=== PATIENT | male | born 1930 | race Caucasian/White ===

== ENCOUNTER 2016-12-22 21:29 | Inpatient (IN) ==
[2016-12-22 23:49] VITALS: BMI 24.7
[2016-12-22] MEDS ORDERED: HALOPERIDOL 5 MG/ML INJECTION IM PRN (23:49)
[2016-12-22] MEDS ORDERED: HALOPERIDOL 0.5 MG TABLET PO PRN (23:49)
[2016-12-22] MEDS ORDERED: LORazepam 0.5 MG TABLET PO PRN (23:49)
[2016-12-23] MEDS: ACETAMINOPHEN 325 MG TABLET PO PRN ×2 (01:06→13:21)
[2016-12-23] MEDS ORDERED: PNEUMOCOCCAL 13 VACCINE 0.5ml INJECTION IM ONE (08:00)
[2016-12-23] MEDS: DOCUSATE SODIUM 100 MG CAPSULE PO SCH ×2 (11:04→20:10)
[2016-12-23] MEDS: CARVEDILOL 3.125 MG TABLET PO SCH ×2 (11:04→20:09)
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
[2016-12-23] MEDS: LOVASTATIN 20 MG TABLET PO SCH (20:10)
[2016-12-24] MEDS: DOCUSATE SODIUM 100 MG CAPSULE PO SCH ×2 (10:00→20:16)
[2016-12-24] MEDS: CARVEDILOL 3.125 MG TABLET PO SCH ×2 (10:00→20:16)
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
[2016-12-24] MEDS: ACETAMINOPHEN 325 MG TABLET PO PRN ×2 (13:04→23:47)
[2016-12-24] MEDS: LOVASTATIN 20 MG TABLET PO SCH (20:16)
[2016-12-25] MEDS: DOCUSATE SODIUM 100 MG CAPSULE PO SCH ×2 (08:39→20:03)
[2016-12-25] MEDS: CARVEDILOL 3.125 MG TABLET PO SCH ×2 (08:39→20:03)
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
[2016-12-25] MEDS: LOVASTATIN 20 MG TABLET PO SCH (20:03)
[2016-12-25] MEDS: RisperiDONE 0.5 MG TABLET PO SCH (20:03)
[2016-12-26] MEDS: CARVEDILOL 3.125 MG TABLET PO SCH ×2 (09:37→17:15)
[2016-12-26] MEDS: DOCUSATE SODIUM 100 MG CAPSULE PO SCH ×2 (09:37→20:00)
--- NOTE | 2016-12-26 15:40 | Procedure Note ---
Procedure Note: Nursing staff called to report patient felt Dizzy. BGM was 290's. vital signs were taken and pulse ox reveled elevated pulse in the 150's briefly that decreased to 80's. EKG obtained reveled NSR. Patient remains symptomatic. Family was notified and reveal this is common. Patient has had similar symptoms in the past. Currently stable without complaints.
[2016-12-26] MEDS ORDERED: IBUPROFEN 400 MG TABLET PO PRN (16:16)
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
[2016-12-26] MEDS: RisperiDONE 0.5 MG TABLET PO SCH (20:00)
[2016-12-26] MEDS: LOVASTATIN 20 MG TABLET PO SCH (20:00)
--- NOTE | 2016-12-27 08:42 | Progress Note ---
- Date 12/27/16 Subjective: Carroll was still in bed but awake and alert. He denies any c/o such as chest pain , SOA, or weakness. He has been eating/drinking well and denies any abd or GI concerns. His dizzy episode yesterday occurred after he "walked in a [place]" from his bed, to the bathroom, to the sink, and back to the bed. His only other symptom was that his head felt hot. Objective Vital signs: Temperature 98.2 F 12/26/16 20:00 Pulse Rate 67 12/26/16 20:00 Respiratory Rate 18 12/26/16 20:00 Blood Pressure 122/67 12/26/16 20:00 Pulse Oximetry 96 12/26/16 20:00 Height/Weight/BMI: Height 1.7 m Weight 71.5 kg Body Mass Index 24.7 - Constitutional Present: no acute distress, well nourished, well developed - Routine HEENT Exam ENT: Present: oropharynx clear - Routine Respiratory Exam Present: CTA bilaterally - Routine Cardiovascular Exam Present: RRR, S1, S2 - Routine Abdominal Exam Present: soft, normoactive bowel sounds, non distended, non tender Comments: insulin pump to right side of abd. - Routine Extremities Exam Present: edema (trace edema b/l lower ext.) - Routine Musculoskeletal Exam Musculoskeletal: Present: limited range of motion (shoulder immobilizer in place to right arm) - Routine Skin Exam Present: intact, dry, warm - Routine Neurological Exam Present: alert, oriented X3 - Routine Psychiatric Exam Present: normal affect, normal thought process, cooperative Results - Labs CBC & Chem 7: 12/27/16 07:52 12/27/16 07:52 Assessment and Plan (1) Delusional disorder Current visit: Yes Status: Acute (2) Type 1 diabetes Current visit: Yes Status: Acute Resuscitation Status: Full Code Assessment and Plan: IMPRESSION Delusional disorder Diabetes mellitus type 1-insulin pump and continuous glucometer Mild normocytic anemia Thrombocytopenia Left ear deafness Hypertension GERD Hyperlipidemia Diverticulosis s/p right shoulder arthroscopy with [employer] Labs checked d/t dizzy episode yesterday - mild anemia and thrombocytopenia. Stop ibuprofen. Labs from [place] on 12/21 showed a platelet count of 107 & hgb of 13.8. Per [facility], they do not have a previous CBC on him to confirm/deny chronicity of thrombocytopenia. Pt doesn't take Tylenol (afraid it creates problems with his blood sugars). Add tramadol for postop pain control. DM management per pt. Psych notes reviewed - since Risperdal was started his delusions and paranoia have become less prominent Hospital Course Summary Disclaimer: The visit summary below is not to be considered part of the above Progress Note. Hospital Course: Assessment Delusional disorder Diabetes mellitus type 1-insulin pump and continuous glucometer Left ear deafness Hypertension GERD Hyperlipidemia Diverticulosis 12/23/16-hospitalist consult Agree with admissions to [facility] and to provide a safe environment. Patient has to change out insulin cartridge every 3 days. This is due on Monday, December 24. He also changes out his continuous glucose monitoring system every 3 days as well. This will be due at the same time. Will continue his current basal insulin as programmed into his pump. He is very capable, at this time, to dial in his own bolus insulin based on his blood sugar. Nurses to record his blood sugars at least fasting and before meals, and ideally each time insulin is given. Will continue lovastatin and carvedilol for hyperlipidemia and hypertension. These are his only prescription medications besides his insulin. ER notes are reviewed. Case discussed with nursing staff and [facility] physical security manager. Ideally patient should establish with a primary care provider, and continue to follow-up routinely with Alisha Lares APRN endocrinology. 12/24/16 10:46 Remains delusional. Will contact [employer] for collateral and request start of antipsychotic 12/25/16 11:36 Remains paranoid and delusional. Will start Risperdal 0.5mg at HS with [facility] consent 12/26/16 18:48 Remains paranoid but appears less focused on it. Continue Risperdal. 12/27/16 Labs checked d/t dizzy episode yesterday - mild anemia and thrombocytopenia. Stop ibuprofen. Labs from [place] on 12/21 showed a platelet count of 107 & hgb of 13.8. Per [facility], they do not have a previous CBC on him to confirm/deny chronicity of thrombocytopenia. Pt doesn't take Tylenol (afraid it creates problems with his blood sugars). Add tramadol for postop pain control. DM management per pt. Psych notes reviewed - since Risperdal was started his delusions and paranoia have become less prominent
[2016-12-27] MEDS ORDERED: ACETAMINOPHEN 325 MG TABLET PO PRN (09:15)
[2016-12-27] MEDS: DOCUSATE SODIUM 100 MG CAPSULE PO SCH ×2 (09:50→21:03)
[2016-12-27] MEDS: CARVEDILOL 3.125 MG TABLET PO SCH ×2 (09:50→17:54)
[2016-12-27] MEDS: TRAMADOL 50 MG TABLET PO PRN ×2 (09:51→21:03)
--- NOTE | 2016-12-27 18:41 | Neuropsych Progress Note ---
[facility] Subjective Date: 12/27/16 - Sujective/Severity of Illness Medications: Acetaminophen (Tylenol) 325 - 650 mg PO Q5H PRN PRN Reason: Discomfort Carvedilol (Coreg) 3.125 mg PO BIDWM [facility] Last Admin: 12/27/16 17:54 Dose: 3.125 mg Docusate Sodium (Colace) 100 mg PO BID [facility] Last Admin: 12/27/16 09:50 Dose: 100 mg Haloperidol (Haldol) 0.5 mg PO Q6H PRN PRN Reason: Extreme agitation Haloperidol Lactate (Haldol) 0.5 mg IM Q6H PRN PRN Reason: Extreme agitation Lorazepam (Ativan Inj) 0.5 mg IM Q6H PRN PRN Reason: Extreme agitation Lorazepam (Ativan) 0.5 mg PO Q6H PRN PRN Reason: Extreme agitation Lovastatin (Mevacor) 20 mg PO HS [facility] Last Admin: 12/26/16 20:00 Dose: 20 mg Risperidone (Risperdal) 0.5 mg PO [facility] Last Admin: 12/26/16 20:00 Dose: 0.5 mg Tramadol HCl (Ultram) 50 mg PO Q6H PRN PRN Reason: Pain Last Admin: 12/27/16 09:51 Dose: 50 mg Subjective: Pt seen and chart examined. Nursing reports pt has been irritable at times but is redirectable. On face to face the pt is pleasant. He remains paranoid and delusional. Denies any S/I. Tolerating meds Start Time: 17:00 Stop Time: 17:15 Mental Status Exam Vitals: Last Vital Signs Temp 97.8 F 12/27/16 15:56 Pulse 80 12/27/16 15:56 Resp 20 12/27/16 15:56 BP 144/75 H 12/27/16 15:56 Pulse Ox 98 12/27/16 15:56 Height: 1.7 m Weight: 71.5 kg - Mental Status Exam Muscle Strength/Tone: Normal Dressing: Casual Grooming: Good Attitude: Cooperative Motor Activity: Normal Eye Contact: Fair Speech: Rapid Volume: Normal Rhythm: Appropriate Rhythm Orientation: Oriented X4 Mood: Euthymic Rate of Thoughts: Pressured Thought Organization: Tangential Associations: Flight of Ideas Abstract Reasoning: Poor abstract reasoning Computation: Intact Thought Content: Delusions Perception/Psychotic: Perception Normal Language: Naming Intact Fund of Knowledge: Appropriate Memory: Grossly Intact Suicidal Ideation: None Homicidal Ideation: Intermittent Insight: Poor Judgement: Poor Impulse Control: Poor - Laboratory Result Diagrams: 12/27/16 07:52 12/27/16 07:52 Laboratory Results - last 24 hr 12/27/16 12/27/16 07:52 07:52 WBC 5.7 RBC 4.33 L Hgb 13.3 L Hct 38.6 L MCV 89.1 MCH 30.7 MCHC 34.5 RDW Std Deviation 43.0 Plt Count 99 L MPV 9.8 Immature Gran % (Auto) 0.2 Neut % (Auto) 42.1 Lymph % (Auto) 48.9 H Bowie % (Auto) 4.8 Eos % (Auto) 3.5 Baso % (Auto) 0.5 Neut # (Auto) 2.4 Lymph # (Auto) 2.8 Bowie # (Auto) 0.3 Eos # (Auto) 0.2 Baso # (Auto) 0.0 Abs Immat Gran (auto) 0.01 Turbidity < 20 Sodium 142 Potassium 4.2 Chloride 103 Carbon Dioxide 31 H Anion Gap 8 BUN 15.0 Creatinine 0.9 GFR Calculation 80 BUN/Creatinine Ratio 17 Glucose 174 H Calculated Osmolality 278 Calcium 9.1 Total Bilirubin 0.80 Icterus Index < 2 AST 16 L ALT 37 Alkaline Phosphatase 115 Total Protein 6.4 Albumin 3.5 Globulin 2.9 Albumin/Globulin Ratio 1.2 Specimen Hemolysis < 15 Assessment and Plan (1) Major neurocognitive disorder Problem details: Suspect. Possibly Frontotemporal Current visit: Yes Status : Acute Hospital Course Summary Disclaimer: The visit summary below is not to be considered part of the above Progress Note. Hospital Course: Assessment Delusional disorder Diabetes mellitus type 1-insulin pump and continuous glucometer Left ear deafness Hypertension GERD Hyperlipidemia Diverticulosis 12/23/16-hospitalist consult Agree with admissions to [facility] and to provide a safe environment. Patient has to change out insulin cartridge every 3 days. This is due on Monday, December 24. He also changes out his continuous glucose monitoring system every 3 days as well. This will be due at the same time. Will continue his current basal insulin as programmed into his pump. He is very capable, at this time, to dial in his own bolus insulin based on his blood sugar. Nurses to record his blood sugars at least fasting and before meals, and ideally each time insulin is given. Will continue lovastatin and carvedilol for hyperlipidemia and hypertension. These are his only prescription medications besides his insulin. ER notes are reviewed. Case discussed with nursing staff and [facility] transportation dispatch manager. Ideally patient should establish with a primary care provider, and continue to follow-up routinely with Alisha Lares APRN endocrinology. 12/24/16 10:46 Remains delusional. Will contact [employer] for collateral and request start of antipsychotic 12/25/16 11:36 Remains paranoid and delusional. Will start Risperdal 0.5mg at HS with [facility]PO[facility] consent 12/26/16 18:48 Remains paranoid but appears less focused on it. Continue Risperdal. 12/27/16 Labs checked d/t dizzy episode yesterday - mild anemia and thrombocytopenia. Stop ibuprofen. Labs from [place] on 12/21 showed a platelet count of 107 & hgb of 13.8. Per [facility], they do not have a previous CBC on him to confirm/deny chronicity of thrombocytopenia. Pt doesn't take Tylenol (afraid it creates problems with his blood sugars). Add tramadol for postop pain control. DM management per pt. Psych notes reviewed - since Risperdal was started his delusions and paranoia have become less prominent 12/27/16 18:41 Remains paranoid. Continue current care
[2016-12-27] MEDS: RisperiDONE 0.5 MG TABLET PO SCH (21:03)
[2016-12-27] MEDS: LOVASTATIN 20 MG TABLET PO SCH (21:03)
[2016-12-28] MEDS: ONDANSETRON ODT 4 MG TABLET PO PRN ×2 (00:09→10:12)
[2016-12-28] MEDS: CARVEDILOL 3.125 MG TABLET PO SCH ×2 (10:48→18:10)
[2016-12-28] MEDS: DOCUSATE SODIUM 100 MG CAPSULE PO SCH ×2 (10:48→21:09)
[2016-12-28] MEDS ORDERED: INSULIN ASPART 100unit/ml INJECTION SQ ONE (13:14)
--- NOTE | 2016-12-28 17:54 | Neuropsych Progress Note ---
[facility] Subjective Date: 12/28/16 - Sujective/Severity of Illness Medications: Acetaminophen (Tylenol) 325 - 650 mg PO Q5H PRN PRN Reason: Discomfort Carvedilol (Coreg) 3.125 mg PO BIDWM [facility] Last Admin: 12/28/16 10:48 Dose: Not Given Docusate Sodium (Colace) 100 mg PO BID [facility] Last Admin: 12/28/16 10:48 Dose: Not Given Haloperidol (Haldol) 0.5 mg PO Q6H PRN PRN Reason: Extreme agitation Haloperidol Lactate (Haldol) 0.5 mg IM Q6H PRN PRN Reason: Extreme agitation Lorazepam (Ativan Inj) 0.5 mg IM Q6H PRN PRN Reason: Extreme agitation Lorazepam (Ativan) 0.5 mg PO Q6H PRN PRN Reason: Extreme agitation Lovastatin (Mevacor) 20 mg PO HS [facility] Last Admin: 12/27/16 21:03 Dose: 20 mg Ondansetron HCl (Zofran Po) 4 mg PO Q6H PRN PRN Reason: Nausea &/or vomiting Last Admin: 12/28/16 10:12 Dose: 4 mg Risperidone (Risperdal) 0.5 mg PO [facility] Last Admin: 12/27/16 21:03 Dose: 0.5 mg Tramadol HCl (Ultram) 50 mg PO Q6H PRN PRN Reason: Pain Last Admin: 12/27/16 21:03 Dose: 50 mg Subjective: Pt seen and chart examined. Nursing reports pt remains paranoid and delusional. has had some issues with his insuling pump and his blood sugars have been high. On face to face the pt states he is doing well. He is pleasant but continues to ruminate on med pulling his arm and him wanting to talk to the [employer]. He denies S/I or H/I. Tolerating meds Start Time: 14:30 Stop Time: 14:45 Mental Status Exam Vitals: Last Vital Signs Temp 98.1 F 12/28/16 16:00 Pulse 78 12/28/16 16:00 Resp 16 12/28/16 16:00 BP 132/67 12/28/16 16:00 Pulse Ox 97 12/28/16 16:00 Height: 1.7 m Weight: 71.5 kg - Mental Status Exam Muscle Strength/Tone: Normal Dressing: Casual Grooming: Good Attitude: Cooperative Motor Activity: Normal Eye Contact: Fair Speech: Rapid Volume: Normal Rhythm: Appropriate Rhythm Orientation: Oriented X4 Mood: Euthymic Rate of Thoughts: Pressured Thought Organization: Tangential Associations: Flight of Ideas Abstract Reasoning: Poor abstract reasoning Computation: Intact Thought Content: Delusions Perception/Psychotic: Perception Normal Language: Naming Intact Fund of Knowledge: Appropriate Memory: Grossly Intact Suicidal Ideation: None Homicidal Ideation: Intermittent Insight: Poor Judgement: Poor Impulse Control: Poor - Laboratory Result Diagrams: 12/27/16 07:52 12/27/16 07:52 Laboratory Results - last 24 hr 12/27/16 12/27/16 12/27/16 20:05 21:14 23:00 Glucometer 91 156 212 12/27/16 12/28/16 12/28/16 23:41 01:34 03:06 Glucometer 226 196 233 12/28/16 12/28/16 12/28/16 03:57 06:05 09:40 Glucometer 231 250 253 12/28/16 12/28/16 12/28/16 10:37 12:33 14:24 Glucometer 293 391 341 12/28/16 15:36 Glucometer 323 Assessment and Plan (1) Major neurocognitive disorder Problem details: Suspect. Possibly Frontotemporal Current visit: Yes Status : Acute Hospital Course Summary Disclaimer: The visit summary below is not to be considered part of the above Progress Note. Hospital Course: Assessment Delusional disorder Diabetes mellitus type 1-insulin pump and continuous glucometer Left ear deafness Hypertension GERD Hyperlipidemia Diverticulosis 12/23/16-hospitalist consult Agree with admissions to [facility] and to provide a safe environment. Patient has to change out insulin cartridge every 3 days. This is due on Monday, December 24. He also changes out his continuous glucose monitoring system every 3 days as well. This will be due at the same time. Will continue his current basal insulin as programmed into his pump. He is very capable, at this time, to dial in his own bolus insulin based on his blood sugar. Nurses to record his blood sugars at least fasting and before meals, and ideally each time insulin is given. Will continue lovastatin and carvedilol for hyperlipidemia and hypertension. These are his only prescription medications besides his insulin. ER notes are reviewed. Case discussed with nursing staff and [facility] merchandise planning manager. Ideally patient should establish with a primary care provider, and continue to follow-up routinely with Alisha Lares APRN endocrinology. 12/24/16 10:46 Remains delusional. Will contact [employer] for collateral and request start of antipsychotic 12/25/16 11:36 Remains paranoid and delusional. Will start Risperdal 0.5mg at HS with [facility]PO[facility] consent 12/26/16 18:48 Remains paranoid but appears less focused on it. Continue Risperdal. 12/27/16 Labs checked d/t dizzy episode yesterday - mild anemia and thrombocytopenia. Stop ibuprofen. Labs from [facility] on 12/21 showed a platelet count of 107 & hgb of 13.8. Per [facility]ology Clinic, they do not have a previous CBC on him to confirm/deny chronicity of thrombocytopenia. Pt doesn't take Tylenol (afraid it creates problems with his blood sugars). Add tramadol for postop pain control. DM management per pt. Psych notes reviewed - since Risperdal was started his delusions and paranoia have become less prominent 12/27/16 18:41 Remains paranoid. Continue current care 12/28/16 17:54 Remains paranoid and delusional. Continue current care
[2016-12-28] MEDS: LOVASTATIN 20 MG TABLET PO SCH (21:08)
[2016-12-28] MEDS: RisperiDONE 0.5 MG TABLET PO SCH (21:08)
[2016-12-29] MEDS: DOCUSATE SODIUM 100 MG CAPSULE PO SCH ×2 (10:53→21:06)
[2016-12-29] MEDS: CARVEDILOL 3.125 MG TABLET PO SCH ×2 (10:53→17:20)
[2016-12-29] MEDS ORDERED: PNEUMOCOCCAL VAC ADMIN CHARGE INJ ONE (12:00)
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
[2016-12-29] MEDS: LOVASTATIN 20 MG TABLET PO SCH (21:06)
[2016-12-29] MEDS: RisperiDONE 0.5 MG TABLET PO SCH (21:06)
[2016-12-30] MEDS: CARVEDILOL 3.125 MG TABLET PO SCH ×2 (11:58→20:12)
[2016-12-30] MEDS: DOCUSATE SODIUM 100 MG CAPSULE PO SCH ×2 (11:58→20:12)
--- NOTE | 2016-12-30 16:43 | Progress Note ---
- Date 12/30/16 Subjective: Carroll is doing well. His shoulder pain has markedly improved and the tramadol has been helpful. He has not had any further dizzy spells. He denies SOA or chest pain. His sugars have been high, but he told me that his doctor gave him permission to run high (used to have hypoglycemic events) for quality of life reasons. Objective Vital signs: Temperature 97.9 F 12/30/16 11:50 Pulse Rate 94 12/30/16 11:50 Respiratory Rate 16 12/30/16 11:50 Blood Pressure 134/71 12/30/16 11:50 Pulse Oximetry 95 12/30/16 11:50 Height/Weight/BMI: Height 1.7 m Weight 70.6 kg Body Mass Index 24.7 - Constitutional Present: no acute distress, well nourished, well developed - Routine HEENT Exam ENT: Present: oropharynx clear - Routine Respiratory Exam Present: CTA bilaterally - Routine Cardiovascular Exam Present: RRR - Routine Abdominal Exam Present: soft, non tender - Routine Extremities Exam Present: no edema - Routine Musculoskeletal Exam Musculoskeletal: Present: surgical scar (right shoulder arthroscopic incisions have healed) - Routine Skin Exam Present: dry, warm - Routine Neurological Exam Present: alert, oriented X3 - Routine Psychiatric Exam Present: normal affect, normal thought process, cooperative Results - Labs CBC & Chem 7: 12/27/16 07:52 12/27/16 07:52 Assessment and Plan (1) Delusional disorder Current visit: Yes Status: Acute (2) Type 1 diabetes Current visit: Yes Status: Acute Assessment and Plan: IMPRESSION Delusional disorder Diabetes mellitus type 1-insulin pump and continuous glucometer Mild normocytic anemia Thrombocytopenia Left ear deafness Hypertension GERD Hyperlipidemia Diverticulosis s/p right shoulder arthroscopy with [facility] [employer] Tramadol is effective in controlling his pain but he hasn't needed any since . Allow permissive hyperglycemia given age and quality of life reasons. Medically stable. Psych notes reviewed. Hospital Course Summary Disclaimer: The visit summary below is not to be considered part of the above Progress Note. Hospital Course: Assessment Delusional disorder Diabetes mellitus type 1-insulin pump and continuous glucometer Left ear deafness Hypertension GERD Hyperlipidemia Diverticulosis 12/23/16-hospitalist consult Agree with admissions to [facility] for [facility] treatment and to provide a safe environment. Patient has to change out insulin cartridge every 3 days. This is due on Monday, December 24. He also changes out his continuous glucose monitoring system every 3 days as well. This will be due at the same time. Will continue his current basal insulin as programmed into his pump. He is very capable, at this time, to dial in his own bolus insulin based on his blood sugar. Nurses to record his blood sugars at least fasting and before meals, and ideally each time insulin is given. Will continue lovastatin and carvedilol for hyperlipidemia and hypertension. These are his only prescription medications besides his insulin. ER notes are reviewed. Case discussed with nursing staff and [facility] manager of allied health services. Ideally patient should establish with a primary care provider, and continue to follow-up routinely with Alisha Lares APRN endocrinology. 12/24/16 10:46 Remains delusional. Will contact [facility] for collateral and request start of antipsychotic 12/25/16 11:36 Remains paranoid and delusional. Will start Risperdal 0.5mg at HS with [facility]PO[facility] consent 12/26/16 18:48 Remains paranoid but appears less focused on it. Continue Risperdal. 12/27/16 Labs checked d/t dizzy episode yesterday - mild anemia and thrombocytopenia. Stop ibuprofen. Labs from [place] on 12/21 showed a platelet count of 107 & hgb of 13.8. Per [facility], they do not have a previous CBC on him to confirm/deny chronicity of thrombocytopenia. Pt doesn't take Tylenol (afraid it creates problems with his blood sugars). Add tramadol for postop pain control. DM management per pt. Psych notes reviewed - since Risperdal was started his delusions and paranoia have become less prominent 12/27/16 18:41 Remains paranoid. Continue current care 12/28/16 17:54 Remains paranoid and delusional. Continue current care 12/29/16 19:13 Remains delusional but denies any thoughts of harming himself or others. Continue current care
--- NOTE | 2016-12-30 18:43 | Neuropsych Progress Note ---
[facility] Subjective Date: 12/30/16 - Sujective/Severity of Illness Medications: Acetaminophen (Tylenol) 325 - 650 mg PO Q5H PRN PRN Reason: Discomfort Carvedilol (Coreg) 3.125 mg PO BIDWM [facility] Last Admin: 12/30/16 11:58 Dose: 3.125 mg Docusate Sodium (Colace) 100 mg PO BID [facility] Last Admin: 12/30/16 11:58 Dose: 100 mg Haloperidol (Haldol) 0.5 mg PO Q6H PRN PRN Reason: Extreme agitation Haloperidol Lactate (Haldol) 0.5 mg IM Q6H PRN PRN Reason: Extreme agitation Lorazepam (Ativan Inj) 0.5 mg IM Q6H PRN PRN Reason: Extreme agitation Lorazepam (Ativan) 0.5 mg PO Q6H PRN PRN Reason: Extreme agitation Lovastatin (Mevacor) 20 mg PO HS [facility] Last Admin: 12/29/16 21:06 Dose: 20 mg Ondansetron HCl (Zofran Po) 4 mg PO Q6H PRN PRN Reason: Nausea &/or vomiting Last Admin: 12/28/16 10:12 Dose: 4 mg Risperidone (Risperdal) 0.5 mg PO [facility] Last Admin: 12/29/16 21:06 Dose: 0.5 mg Tramadol HCl (Ultram) 50 mg PO Q6H PRN PRN Reason: Pain Last Admin: 12/27/16 21:03 Dose: 50 mg Subjective: Pt seen and chart examined. Nursing reports pt is doing well. Remains delusional but is pleasant and seems less focused on the delusions. On face to face the pt states he is doing well. He is pleasant and cooperative. Denies any S/I or H/I. Again states he believes these men were pulling his arm but has no intent to harm them. Tolerating meds Start Time: 16:00 Stop Time: 16:15 Mental Status Exam Vitals: Last Vital Signs Temp 97.6 F 12/30/16 16:00 Pulse 60 12/30/16 16:00 Resp 16 12/30/16 16:00 BP 150/69 H 12/30/16 16:00 Pulse Ox 96 12/30/16 16:00 Height: 1.7 m Weight: 70.6 kg - Mental Status Exam Muscle Strength/Tone: Normal Dressing: Casual Grooming: Good Attitude: Cooperative Motor Activity: Normal Eye Contact: Fair Speech: Rapid Volume: Normal Rhythm: Appropriate Rhythm Orientation: Oriented X4 Mood: Euthymic Rate of Thoughts: Pressured Thought Organization: Tangential Associations: Flight of Ideas Abstract Reasoning: Poor abstract reasoning Computation: Intact Thought Content: Delusions Perception/Psychotic: Perception Normal Language: Naming Intact Fund of Knowledge: Appropriate Memory: Grossly Intact Suicidal Ideation: None Homicidal Ideation: Intermittent Insight: Poor Judgement: Poor Impulse Control: Poor - Laboratory Result Diagrams: 12/27/16 07:52 12/27/16 07:52 Laboratory Results - last 24 hr 12/29/16 12/29/16 12/30/16 16:47 21:06 06:29 Glucometer 211 205 180 12/30/16 12/30/16 11:43 16:16 Glucometer 216 263 Assessment and Plan (1) Major neurocognitive disorder Problem details: Suspect. Possibly Frontotemporal Current visit: Yes Status : Acute Hospital Course Summary Disclaimer: The visit summary below is not to be considered part of the above Progress Note. Hospital Course: Assessment Delusional disorder Diabetes mellitus type 1-insulin pump and continuous glucometer Left ear deafness Hypertension GERD Hyperlipidemia Diverticulosis 12/23/16-hospitalist consult Agree with admissions to [facility] for [facility] treatment and to provide a safe environment. Patient has to change out insulin cartridge every 3 days. This is due on Monday, December 24. He also changes out his continuous glucose monitoring system every 3 days as well. This will be due at the same time. Will continue his current basal insulin as programmed into his pump. He is very capable, at this time, to dial in his own bolus insulin based on his blood sugar. Nurses to record his blood sugars at least fasting and before meals, and ideally each time insulin is given. Will continue lovastatin and carvedilol for hyperlipidemia and hypertension. These are his only prescription medications besides his insulin. ER notes are reviewed. Case discussed with nursing staff and [facility] client business manager. Ideally patient should establish with a primary care provider, and continue to follow-up routinely with Alisha Lares APRN endocrinology. 12/24/16 10:46 Remains delusional. Will contact [facility] for collateral and request start of antipsychotic 12/25/16 11:36 Remains paranoid and delusional. Will start Risperdal 0.5mg at HS with DPOA consent 12/26/16 18:48 Remains paranoid but appears less focused on it. Continue Risperdal. 12/27/16 Labs checked d/t dizzy episode yesterday - mild anemia and thrombocytopenia. Stop ibuprofen. Labs from [place] on 12/21 showed a platelet count of 107 & hgb of 13.8. Per [facility], they do not have a previous CBC on him to confirm/deny chronicity of thrombocytopenia. Pt doesn't take Tylenol (afraid it creates problems with his blood sugars). Add tramadol for postop pain control. DM management per pt. Psych notes reviewed - since Risperdal was started his delusions and paranoia have become less prominent 12/27/16 18:41 Remains paranoid. Continue current care 12/28/16 17:54 Remains paranoid and delusional. Continue current care 12/29/16 19:13 Remains delusional but denies any thoughts of harming himself or others. Continue current care 12/30/16 18:42 Improving. Some delusions remain. Continue current care
[2016-12-30] MEDS: RisperiDONE 0.5 MG TABLET PO SCH (20:13)
[2016-12-30] MEDS: LOVASTATIN 20 MG TABLET PO SCH (20:13)
[2016-12-31] MEDS: CARVEDILOL 3.125 MG TABLET PO SCH ×2 (10:41→17:47)
[2016-12-31] MEDS: DOCUSATE SODIUM 100 MG CAPSULE PO SCH ×2 (10:41→20:57)
--- NOTE | 2016-12-31 12:21 | Neuropsych Progress Note ---
[facility] Subjective Date: 12/31/16 - Sujective/Severity of Illness Medications: Acetaminophen (Tylenol) 325 - 650 mg PO Q5H PRN PRN Reason: Discomfort Carvedilol (Coreg) 3.125 mg PO [facility] Last Admin: 12/31/16 10:41 Dose: 3.125 mg Docusate Sodium (Colace) 100 mg PO BID [facility] Last Admin: 12/31/16 10:41 Dose: 100 mg Haloperidol (Haldol) 0.5 mg PO Q6H PRN PRN Reason: Extreme agitation Haloperidol Lactate (Haldol) 0.5 mg IM Q6H PRN PRN Reason: Extreme agitation Lorazepam (Ativan Inj) 0.5 mg IM Q6H PRN PRN Reason: Extreme agitation Lorazepam (Ativan) 0.5 mg PO Q6H PRN PRN Reason: Extreme agitation Lovastatin (Mevacor) 20 mg PO [facility] Last Admin: 12/30/16 20:13 Dose: 20 mg Ondansetron HCl (Zofran Po) 4 mg PO Q6H PRN PRN Reason: Nausea &/or vomiting Last Admin: 12/28/16 10:12 Dose: 4 mg Risperidone (Risperdal) 0.5 mg PO [facility] Last Admin: 12/30/16 20:13 Dose: 0.5 mg Tramadol HCl (Ultram) 50 mg PO Q6H PRN PRN Reason: Pain Last Admin: 12/27/16 21:03 Dose: 50 mg Subjective: Pt seen and chart examined. Nursing reports pt is doing well. Sleeping well and has a good appetite. On face to face the pt states he is doing well. Mood stable. Paranoia improved. Tolerating meds. Denies S/I. Start Time: 11:00 Stop Time: 11:15 Mental Status Exam Vitals: Last Vital Signs Temp 97.8 F 12/31/16 08:00 Pulse 105 H 12/31/16 08:00 Resp 18 12/31/16 08:00 BP 121/74 12/31/16 08:00 Pulse Ox 97 12/31/16 08:00 Height: 1.7 m Weight: 70.6 kg - Mental Status Exam Muscle Strength/Tone: Normal Dressing: Casual Grooming: Good Attitude: Cooperative Motor Activity: Normal Eye Contact: Fair Speech: Rapid Volume: Normal Rhythm: Appropriate Rhythm Orientation: Oriented X4 Mood: Euthymic Rate of Thoughts: Pressured Thought Organization: Tangential Associations: Flight of Ideas Abstract Reasoning: Poor abstract reasoning Computation: Intact Thought Content: Delusions Perception/Psychotic: Perception Normal Language: Naming Intact Fund of Knowledge: Appropriate Memory: Grossly Intact Suicidal Ideation: None Homicidal Ideation: Intermittent Insight: Poor Judgement: Poor Impulse Control: Poor - Laboratory Result Diagrams: 12/27/16 07:52 12/27/16 07:52 Laboratory Results - last 24 hr 12/30/16 12/30/16 12/31/16 16:16 21:04 05:52 Glucometer 263 235 171 12/31/16 10:55 Glucometer 228 Assessment and Plan (1) Major neurocognitive disorder Problem details: Suspect. Possibly Frontotemporal Current visit: Yes Status : Acute Hospital Course Summary Disclaimer: The visit summary below is not to be considered part of the above Progress Note. Hospital Course: Assessment Delusional disorder Diabetes mellitus type 1-insulin pump and continuous glucometer Left ear deafness Hypertension GERD Hyperlipidemia Diverticulosis 12/23/16-hospitalist consult Agree with admissions to [facility] for [facility] treatment and to provide a safe environment. Patient has to change out insulin cartridge every 3 days. This is due on Monday, December 24. He also changes out his continuous glucose monitoring system every 3 days as well. This will be due at the same time. Will continue his current basal insulin as programmed into his pump. He is very capable, at this time, to dial in his own bolus insulin based on his blood sugar. Nurses to record his blood sugars at least fasting and before meals, and ideally each time insulin is given. Will continue lovastatin and carvedilol for hyperlipidemia and hypertension. These are his only prescription medications besides his insulin. ER notes are reviewed. Case discussed with nursing staff and [facility] biology manager. Ideally patient should establish with a primary care provider, and continue to follow-up routinely with Alisha Lares APRN endocrinology. 12/24/16 10:46 Remains delusional. Will contact [facility] for collateral and request start of antipsychotic 12/25/16 11:36 Remains paranoid and delusional. Will start Risperdal 0.5mg at HS with [facility]PO[facility] consent 12/26/16 18:48 Remains paranoid but appears less focused on it. Continue Risperdal. 12/27/16 Labs checked d/t dizzy episode yesterday - mild anemia and thrombocytopenia. Stop ibuprofen. Labs from [place] on 12/21 showed a platelet count of 107 & hgb of 13.8. Per [facility], they do not have a previous CBC on him to confirm/deny chronicity of thrombocytopenia. Pt doesn't take Tylenol (afraid it creates problems with his blood sugars). Add tramadol for postop pain control. DM management per pt. Psych notes reviewed - since Risperdal was started his delusions and paranoia have become less prominent 12/27/16 18:41 Remains paranoid. Continue current care 12/28/16 17:54 Remains paranoid and delusional. Continue current care 12/29/16 19:13 Remains delusional but denies any thoughts of harming himself or others. Continue current care 12/30/16 18:42 Improving. Some delusions remain. Continue current care 12/31/16 12:20 Continues to improve. Continue current care
[2016-12-31] MEDS: LOVASTATIN 20 MG TABLET PO SCH (20:52)
[2016-12-31] MEDS: RisperiDONE 0.5 MG TABLET PO SCH (20:53)
[2017-01-01] MEDS: CARVEDILOL 3.125 MG TABLET PO SCH ×2 (09:30→18:27)
[2017-01-01] MEDS: DOCUSATE SODIUM 100 MG CAPSULE PO SCH ×2 (09:31→18:20)
--- NOTE | 2017-01-01 12:15 | Neuropsych Progress Note ---
[facility] Subjective Date: 01/01/17 - Sujective/Severity of Illness Medications: Acetaminophen (Tylenol) 325 - 650 mg PO Q5H PRN PRN Reason: Discomfort [facility] Last Admin: 01/01/17 09:30 Dose: 3.125 mg Docusate Sodium (Colace) 100 mg PO BID [facility] Last Admin: 01/01/17 09:31 Dose: 100 mg Haloperidol (Haldol) 0.5 mg PO Q6H PRN PRN Reason: Extreme agitation Haloperidol Lactate (Haldol) 0.5 mg IM Q6H PRN PRN Reason: Extreme agitation Lorazepam (Ativan Inj) 0.5 mg IM Q6H PRN PRN Reason: Extreme agitation Lorazepam (Ativan) 0.5 mg PO Q6H PRN PRN Reason: Extreme agitation Lovastatin (Mevacor) 20 mg PO [facility] Last Admin: 12/31/16 20:52 Dose: 20 mg Ondansetron HCl (Zofran Po) 4 mg PO Q6H PRN PRN Reason: Nausea &/or vomiting Last Admin: 12/28/16 10:12 Dose: 4 mg Risperidone (Risperdal) 0.5 mg PO [facility] Last Admin: 12/31/16 20:53 Dose: 0.5 mg Tramadol HCl (Ultram) 50 mg PO Q6H PRN PRN Reason: Pain Last Admin: 12/27/16 21:03 Dose: 50 mg Subjective: Pt seen and chart examined. Nursing reports pt is doing well. Sleeping well and has a good appetite. On face to face the pt states he is doing well and voices no concerns. Affect is bright and delusions are improving. Denies S/I or H/I. Tolerating meds Start Time: 11:00 Stop Time: 11:15 Mental Status Exam Vitals: Last Vital Signs Temp 97.3 F 01/01/17 08:00 Pulse 60 01/01/17 08:00 Resp 16 01/01/17 08:00 BP 137/70 01/01/17 08:00 Pulse Ox 94 01/01/17 08:00 Height: 1.7 m Weight: 70.6 kg - Mental Status Exam Muscle Strength/Tone: Normal Dressing: Casual Grooming: Good Attitude: Cooperative Motor Activity: Normal Eye Contact: Fair Speech: Normal Volume: Normal Rhythm: Appropriate Rhythm Orientation: Oriented X4 Mood: Euthymic Rate of Thoughts: Appropriate Rate Thought Organization: Organized Associations: Intact Abstract Reasoning: Intact, able to abstract Computation: Intact Thought Content: Delusions Perception/Psychotic: Perception Normal Language: Naming Intact Fund of Knowledge: Appropriate Memory: Grossly Intact Suicidal Ideation: None Homicidal Ideation: None Insight: Limited Judgement: Limited Impulse Control: Fair - Laboratory Result Diagrams: 12/27/16 07:52 12/27/16 07:52 Laboratory Results - last 24 hr 12/31/16 01/01/17 01/01/17 16:49 05:12 10:48 Glucometer 139 201 231 Assessment and Plan (1) Major neurocognitive disorder Problem details: Suspect. Possibly Frontotemporal versus delusional disorder Current visit: Yes Status: Acute Hospital Course Summary Disclaimer: The visit summary below is not to be considered part of the above Progress Note. Hospital Course: Assessment Delusional disorder Diabetes mellitus type 1-insulin pump and continuous glucometer Left ear deafness Hypertension GERD Hyperlipidemia Diverticulosis 12/23/16-hospitalist consult Agree with admissions to [facility] for psychiatric treatment and to provide a safe environment. Patient has to change out insulin cartridge every 3 days. This is due on Monday, December 24. He also changes out his continuous glucose monitoring system every 3 days as well. This will be due at the same time. Will continue his current basal insulin as programmed into his pump. He is very capable, at this time, to dial in his own bolus insulin based on his blood sugar. Nurses to record his blood sugars at least fasting and before meals, and ideally each time insulin is given. Will continue lovastatin and carvedilol for hyperlipidemia and hypertension. These are his only prescription medications besides his insulin. ER notes are reviewed. Case discussed with nursing staff and [facility] [employer] manager. Ideally patient should establish with a primary care provider, and continue to follow-up routinely with Alisha Lares APRN endocrinology. 12/24/16 10:46 Remains delusional. Will contact [facility] for collateral and request start of antipsychotic 12/25/16 11:36 Remains paranoid and delusional. Will start Risperdal 0.5mg at HS with [facility] consent 12/26/16 18:48 Remains paranoid but appears less focused on it. Continue Risperdal. 12/27/16 Labs checked d/t dizzy episode yesterday - mild anemia and thrombocytopenia. Stop ibuprofen. Labs from [facility] on 12/21 showed a platelet count of 107 & hgb of 13.8. Per [facility]ology [facility], they do not have a previous CBC on him to confirm/deny chronicity of thrombocytopenia. Pt doesn't take Tylenol (afraid it creates problems with his blood sugars). Add tramadol for postop pain control. DM management per pt. Psych notes reviewed - since Risperdal was started his delusions and paranoia have become less prominent 12/27/16 18:41 Remains paranoid. Continue current care 12/28/16 17:54 Remains paranoid and delusional. Continue current care 12/29/16 19:13 Remains delusional but denies any thoughts of harming himself or others. Continue current care 12/30/16 18:42 Improving. Some delusions remain. Continue current care 12/31/16 12:20 Continues to improve. Continue current care 01/01/17 12:15 Continues to improve continue current care
[2017-01-01] MEDS: RisperiDONE 0.5 MG TABLET PO SCH (18:20)
[2017-01-01] MEDS: LOVASTATIN 20 MG TABLET PO SCH (18:20)
[2017-01-01] MEDS: TRAMADOL 50 MG TABLET PO PRN (20:06)
[2017-01-02] MEDS: RisperiDONE 0.5 MG TABLET PO SCH ×2 (00:20→21:10)
[2017-01-02] MEDS: LOVASTATIN 20 MG TABLET PO SCH ×2 (00:20→21:10)
[2017-01-02] MEDS: DOCUSATE SODIUM 100 MG CAPSULE PO SCH ×3 (00:21→21:10)
[2017-01-02] MEDS ORDERED: TRAZODONE 50 MG TABLET PO ONE (00:59)
[2017-01-02] MEDS: ONDANSETRON ODT 4 MG TABLET PO PRN (03:21)
[2017-01-02] MEDS: CARVEDILOL 3.125 MG TABLET PO SCH ×2 (11:30→18:45)
--- NOTE | 2017-01-02 12:16 | Progress Note ---
<Tonya Will D - Last Filed: 01/02/17 12:55> - Date 01/02/17 Subjective: I received an urgent call from [place] [facility]/t Carroll's HR being >150. He was sitting at the dining table, in no acute distress. He stated that he walked down from his room to the dining room and started feeling "odd" and dizzy. He is a little short of breath. He denies chest pain, heart pounding or palpitations. He denies nausea or diaphoresis. BG is >200. Objective Vital signs: Temperature 98.0 F 01/01/17 21:14 Pulse Rate 68 01/01/17 21:14 Respiratory Rate 18 01/01/17 21:14 Blood Pressure 132/62 01/01/17 21:14 Pulse Oximetry 96 01/01/17 21:14 Height/Weight/BMI: Height 1.7 m Weight 71 kg Body Mass Index 24.7 - Constitutional Present: no acute distress, well nourished, well developed - Routine HEENT Exam Eye: Absent: conjunctival icterus, scleral injection - Routine Respiratory Exam Present: CTA bilaterally - Routine Cardiovascular Exam Present: RRR, S1, S2, tachycardia (140 pulse on exam) - Routine Abdominal Exam Present: soft, normoactive bowel sounds - Routine Extremities Exam Present: no edema - Routine Skin Exam Present: intact, dry, pallor (slight), warm - Routine Neurological Exam Present: alert, oriented X3 - Routine Psychiatric Exam Present: normal affect, normal thought process, cooperative Results - Labs CBC & Chem 7: 01/02/17 06:58 01/02/17 06:58 Assessment and Plan (1) Delusional disorder Current visit: Yes Status: Acute (2) Type 1 diabetes Current visit: Yes Status: Acute Assessment and Plan: IMPRESSION Delusional disorder Diabetes mellitus type 1-insulin pump and continuous glucometer Mild normocytic anemia Thrombocytopenia Left ear deafness Hypertension GERD Hyperlipidemia Diverticulosis s/p right shoulder arthroscopy with RCR Tachycardia PLAN EKG stat - by the time it was obtained his rhythm was NSR with a rate of 76. Previous EKG on 12/26 showed NSR. Labs done this am CBC and BMP were unremarkable. BP is slightly low at 105/63. Change timing of Coreg to ensure that he receives it with breakfast instead of at lunch (sometimes has been taking it at 1130 and again with supper). If symptoms recur, nurses may obtain a STAT EKG. Recommend f/u with cardiology to discuss a Holter monitor. D/W Dr. Del Rosario. Hospital Course Summary Disclaimer: The visit summary below is not to be considered part of the above Progress Note. Hospital Course: Assessment Delusional disorder Diabetes mellitus type 1-insulin pump and continuous glucometer Left ear deafness Hypertension GERD Hyperlipidemia Diverticulosis 12/23/16-hospitalist consult Agree with admissions to [facility] for psychiatric treatment and to provide a safe environment. Patient has to change out insulin cartridge every 3 days. This is due on Monday, December 24. He also changes out his continuous glucose monitoring system every 3 days as well. This will be due at the same time. Will continue his current basal insulin as programmed into his pump. He is very capable, at this time, to dial in his own bolus insulin based on his blood sugar. Nurses to record his blood sugars at least fasting and before meals, and ideally each time insulin is given. Will continue lovastatin and carvedilol for hyperlipidemia and hypertension. These are his only prescription medications besides his insulin. ER notes are reviewed. Case discussed with nursing staff and [facility] fund manager. Ideally patient should establish with a primary care provider, and continue to follow-up routinely with Alisha Lares APRN endocrinology. 12/24/16 10:46 Remains delusional. Will contact [facility] for collateral and request start of antipsychotic 12/25/16 11:36 Remains paranoid and delusional. Will start Risperdal 0.5mg at HS with DPO[facility] consent 12/26/16 18:48 Remains paranoid but appears less focused on it. Continue Risperdal. 12/27/16 Labs checked d/t dizzy episode yesterday - mild anemia and thrombocytopenia. Stop ibuprofen. Labs from [facility] on 12/21 showed a platelet count of 107 & hgb of 13.8. Per Endocrinology Clinic, they do not have a previous CBC on him to confirm/deny chronicity of thrombocytopenia. Pt doesn't take Tylenol (afraid it creates problems with his blood sugars). Add tramadol for postop pain control. DM management per pt. Psych notes reviewed - since Risperdal was started his delusions and paranoia have become less prominent 12/27/16 18:41 Remains paranoid. Continue current care 12/28/16 17:54 Remains paranoid and delusional. Continue current care 12/29/16 19:13 Remains delusional but denies any thoughts of harming himself or others. Continue current care 12/30/16 18:42 Improving. Some delusions remain. Continue current care 12/31/16 12:20 Continues to improve. Continue current care 01/01/17 12:15 Continues to improve continue current care 01/02/17 EKG stat - by the time it was obtained his rhythm was NSR with a rate of 76. Previous EKG on 12/26 showed NSR. Labs done this am CBC and BMP were unremarkable. BP is slightly low at 105/63. Change timing of Coreg to ensure that he receives it with breakfast instead of at lunch (sometimes has been taking it at 1130 and again with supper). If symptoms recur, nurses may obtain a STAT EKG. Recommend f/u with cardiology to discuss a Holter monitor. D/W Dr. Del Rosario. <Bayron Del Rosario IV - Last Filed: 01/02/17 15:33> - Date 01/02/17 Objective Vital signs: Temperature 97.8 F 01/02/17 12:17 Pulse Rate 146 H 01/02/17 12:17 Respiratory Rate 18 01/02/17 12:17 Blood Pressure 105/63 01/02/17 12:17 Pulse Oximetry 99 01/02/17 12:17 Height/Weight/BMI: Height 5 ft 7 in Weight 71 kg Body Mass Index 24.7 Results - Labs CBC & Chem 7: 01/02/17 06:58 01/02/17 06:58 Assessment and Plan (1) Delusional disorder Current visit: Yes Status: Acute (2) Type 1 diabetes Current visit: Yes Status: Acute Assessment and Plan: I have independently interviewed and examined the patient. I have reviewed the medical record. The plan has been discussed and formulated with [employer] as above with the additions below. Carroll says this happened at home a time or two, but he hadn't thought much of it. He sees Dr. Cary, and his daughter was going to bring some records. Lungs are clear. Heart is regular. Abdomen is s/nt/nd. No edema Will ask for Coreg to be given earlier in the day and try to obtain ECG if this repeats. Would recommend he f/u with Dr. Cary on dismissal. Hospital Course Summary Disclaimer: The visit summary below is not to be considered part of the above Progress Note. Hospital Course: 01/02/17 15:33 recommend he f/u with Dr. Cary on dismissal.
[2017-01-02] MEDS ORDERED: MAG-AL + SIM ORAL LIQUID 30ml PO PRN (21:06)
--- NOTE | 2017-01-02 21:14 | Neuropsych Progress Note ---
[facility] Subjective Date: 01/02/17 - Sujective/Severity of Illness Medications: Acetaminophen (Tylenol) 325 - 650 mg PO Q5H PRN PRN Reason: Discomfort Al Hydroxide/Mg Hydroxide (Maalox Plus) 30 ml PO Q4H PRN PRN Reason: Indigestion Last Admin: 01/02/17 21:10 Dose: 30 ml [facility] Last Admin: 01/02/17 18:45 Dose: 3.125 mg Docusate Sodium (Colace) 100 mg PO BID [facility] Last Admin: 01/02/17 21:10 Dose: 100 mg Haloperidol (Haldol) 0.5 mg PO Q6H PRN PRN Reason: Extreme agitation Haloperidol Lactate (Haldol) 0.5 mg IM Q6H PRN PRN Reason: Extreme agitation Lorazepam (Ativan Inj) 0.5 mg IM Q6H PRN PRN Reason: Extreme agitation Lorazepam (Ativan) 0.5 mg PO Q6H PRN PRN Reason: Extreme agitation Lovastatin (Mevacor) 20 mg PO [facility] Last Admin: 01/02/17 21:10 Dose: 20 mg Ondansetron HCl (Zofran Po) 4 mg PO Q6H PRN PRN Reason: Nausea &/or vomiting Last Admin: 01/02/17 03:21 Dose: 4 mg Risperidone (Risperdal) 0.5 mg PO [facility] Last Admin: 01/02/17 21:10 Dose: 0.5 mg Tramadol HCl (Ultram) 50 mg PO Q6H PRN PRN Reason: Pain Last Admin: 01/01/17 20:06 Dose: 50 mg Subjective: Pt seen and chart examined. Nursing reports pt is doing well. On face to face the pt states he is doing well and voices no concerns. Mood is stable. Denies S/I or H/I. Paranoia improved. Tolerating meds Start Time: 17:00 Stop Time: 17:15 Mental Status Exam Vitals: Last Vital Signs Temp 98.0 F 01/02/17 16:00 Pulse 61 01/02/17 16:00 Resp 20 01/02/17 16:00 BP 125/62 01/02/17 16:00 Pulse Ox 98 01/02/17 16:00 Height: 1.7 m Weight: 71 kg - Mental Status Exam Muscle Strength/Tone: Normal Dressing: Casual Grooming: Good Attitude: Cooperative Motor Activity: Normal Eye Contact: Fair Speech: Normal Volume: Normal Rhythm: Appropriate Rhythm Orientation: Oriented X4 Mood: Euthymic Rate of Thoughts: Appropriate Rate Thought Organization: Organized Associations: Intact Abstract Reasoning: Intact, able to abstract Computation: Intact Thought Content: Delusions Perception/Psychotic: Perception Normal Language: Naming Intact Fund of Knowledge: Appropriate Memory: Grossly Intact Suicidal Ideation: None Homicidal Ideation: None Insight: Limited Judgement: Limited Impulse Control: Fair - Laboratory Result Diagrams: 01/02/17 06:58 01/02/17 06:58 Laboratory Results - last 24 hr 01/02/17 01/02/17 01/02/17 05:22 06:58 06:58 WBC 4.3 L RBC 4.06 L Hgb 12.5 L Hct 36.2 L MCV 89.2 MCH 30.8 MCHC 34.5 RDW Std Deviation 42.5 Plt Count 112 L MPV 9.9 Immature Gran % (Auto) 0.2 Neut % (Auto) 44.4 Lymph % (Auto) 44.0 [place] % (Auto) 7.9 Eos % (Auto) 3.0 Baso % (Auto) 0.5 Neut # (Auto) 1.9 Lymph # (Auto) 1.9 [place] # (Auto) 0.3 Eos # (Auto) 0.1 Baso # (Auto) 0.0 Abs Immat Gran (auto) 0.01 Turbidity < 20 Sodium 138 Potassium 4.4 Chloride 101 Carbon Dioxide 30 Anion Gap 7 BUN 16.0 Creatinine 0.9 GFR Calculation 80 BUN/Creatinine Ratio 18 Glucose 186 H Glucometer 175 Calculated Osmolality 272 Calcium 8.8 Icterus Index < 2 Specimen Hemolysis < 15 01/02/17 11:36 WBC RBC Hgb Hct MCV MCH MCHC RDW Std Deviation Plt Count MPV Immature Gran % (Auto) Neut % (Auto) Lymph % (Auto) [place] % (Auto) Eos % (Auto) Baso % (Auto) Neut # (Auto) Lymph # (Auto) [place] # (Auto) Eos # (Auto) Baso # (Auto) Abs Immat Gran (auto) Turbidity Sodium Potassium Chloride Carbon Dioxide Anion Gap BUN Creatinine GFR Calculation BUN/Creatinine Ratio Glucose Glucometer 235 Calculated Osmolality Calcium Icterus Index Specimen Hemolysis Assessment and Plan (1) Major neurocognitive disorder Problem details: Suspect. Possibly Frontotemporal versus delusional disorder Current visit: Yes Status: Acute Hospital Course Summary Disclaimer: The visit summary below is not to be considered part of the above Progress Note. Hospital Course: 01/02/17 15:33 recommend he f/u with Dr. Cary on dismissal. 01/02/17 21:14 Pt continues to improve. Continue current care
[2017-01-03] MEDS: DOCUSATE SODIUM 100 MG CAPSULE PO SCH ×2 (10:27→20:50)
[2017-01-03] MEDS: CARVEDILOL 3.125 MG TABLET PO SCH ×2 (10:27→17:25)
--- NOTE | 2017-01-03 17:06 | Neuropsych Progress Note ---
[facility] Subjective Date: 01/03/17 - Sujective/Severity of Illness Medications: Acetaminophen (Tylenol) 325 - 650 mg PO Q5H PRN PRN Reason: Discomfort Al Hydroxide/Mg Hydroxide (Maalox Plus) 30 ml PO Q4H PRN PRN Reason: Indigestion Last Admin: 01/02/17 21:10 Dose: 30 [facility] Last Admin: 01/03/17 10:27 Dose: 3.125 mg Docusate Sodium (Colace) 100 mg PO BID [facility] Last Admin: 01/03/17 10:27 Dose: 100 mg Haloperidol (Haldol) 0.5 mg PO Q6H PRN PRN Reason: Extreme agitation Haloperidol Lactate (Haldol) 0.5 mg IM Q6H PRN PRN Reason: Extreme agitation Lorazepam (Ativan Inj) 0.5 mg IM Q6H PRN PRN Reason: Extreme agitation Lorazepam (Ativan) 0.5 mg PO Q6H PRN PRN Reason: Extreme agitation Lovastatin (Mevacor) 20 mg PO [facility] Last Admin: 01/02/17 21:10 Dose: 20 mg Magnesium Hydroxide (Mom) 30 ml PO DAILY PRN PRN Reason: Constipation Last Admin: 01/03/17 10:39 Dose: 30 ml Ondansetron HCl (Zofran Po) 4 mg PO Q6H PRN PRN Reason: Nausea &/or vomiting Last Admin: 01/02/17 03:21 Dose: 4 mg Risperidone (Risperdal) 0.5 mg PO [facility] Last Admin: 01/02/17 21:10 Dose: 0.5 mg Tramadol HCl (Ultram) 50 mg PO Q6H PRN PRN Reason: Pain Last Admin: 01/01/17 20:06 Dose: 50 mg Subjective: Pt seen and chart examined. Nursing reports pt is doing well. Sleeping well and has a good appetite. On face to face the pt states he is doing well. he reports his mood is stable and he denies any S/I or H/I. Some delusions but improved and mild. Tolerating meds Start Time: 17:00 Stop Time: 17:15 Mental Status Exam Vitals: Last Vital Signs Temp 97.9 F 01/03/17 08:00 Pulse 57 L 01/03/17 08:00 Resp 16 01/03/17 08:00 BP 151/63 H 01/03/17 08:00 Pulse Ox 95 01/03/17 08:00 Height: 1.7 m Weight: 71 kg - Mental Status Exam Muscle Strength/Tone: Normal Dressing: Casual Grooming: Good Attitude: Cooperative Motor Activity: Normal Eye Contact: Fair Speech: Normal Volume: Normal Rhythm: Appropriate Rhythm Orientation: Oriented X4 Mood: Euthymic Rate of Thoughts: Appropriate Rate Thought Organization: Organized Associations: Intact Abstract Reasoning: Intact, able to abstract Computation: Intact Thought Content: Delusions Perception/Psychotic: Perception Normal Language: Naming Intact Fund of Knowledge: Appropriate Memory: Grossly Intact Suicidal Ideation: None Homicidal Ideation: None Insight: Limited Judgement: Limited Impulse Control: Fair - Laboratory Result Diagrams: 01/02/17 06:58 01/02/17 06:58 Laboratory Results - last 24 hr 01/02/17 01/03/17 01/03/17 22:06 06:32 11:16 Glucometer 243 228 282 Assessment and Plan (1) Major neurocognitive disorder Problem details: Suspect. Possibly Frontotemporal versus delusional disorder Current visit: Yes Status: Acute Hospital Course Summary Disclaimer: The visit summary below is not to be considered part of the above Progress Note. Hospital Course: 01/02/17 15:33 recommend he f/u with Dr. Cary on dismissal. 01/02/17 21:14 Pt continues to improve. Continue current care 01/03/17 17:05 Doing well. Consider D/C soon
[2017-01-03] MEDS: LOVASTATIN 20 MG TABLET PO SCH (20:50)
[2017-01-03] MEDS: RisperiDONE 0.5 MG TABLET PO SCH (20:50)
[2017-01-04] MEDS: CARVEDILOL 3.125 MG TABLET PO SCH ×2 (10:08→17:19)
[2017-01-04] MEDS: DOCUSATE SODIUM 100 MG CAPSULE PO SCH ×2 (10:08→20:05)
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
[2017-01-04] MEDS: RisperiDONE 0.5 MG TABLET PO SCH (20:05)
[2017-01-04] MEDS: LOVASTATIN 20 MG TABLET PO SCH (20:05)
[2017-01-05] MEDS: CARVEDILOL 3.125 MG TABLET PO SCH ×2 (11:35→17:12)
[2017-01-05] MEDS: DOCUSATE SODIUM 100 MG CAPSULE PO SCH ×2 (11:36→20:37)
[2017-01-05] MEDS ORDERED: INSULIN ASPART 100unit/ml INJECTION SQ ONE (15:10)
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
[2017-01-05] MEDS: RisperiDONE 0.5 MG TABLET PO SCH (20:10)
[2017-01-05] MEDS: LOVASTATIN 20 MG TABLET PO SCH (20:11)
[2017-01-06] MEDS: DOCUSATE SODIUM 100 MG CAPSULE PO SCH ×2 (08:19→20:02)
[2017-01-06] MEDS: CARVEDILOL 3.125 MG TABLET PO SCH ×2 (08:19→17:53)
--- NOTE | 2017-01-06 09:47 | Progress Note ---
- Date 01/06/17 Subjective: Carroll just received word that he won't be able to be discharged today - he thinks this is d/t some confusion; he thought that nursing staff last night thought that he was refusing medications but he states that is not true. He had some problems with his glucose monitor and was on the phone for quite a while this morning but that is under control now. No dizziness or weakness; chest pain. Eating/drinking well. He has a large bruise to his left forearm - states that this occurred the first day he was in the other facility and is taking a long time to heal up. Nursing staff deny any known falls/injuries. Right shoulder is without pain. Objective Vital signs: Temperature 97.6 F 01/06/17 08:00 Pulse Rate 91 01/06/17 08:00 Respiratory Rate 16 01/06/17 08:00 Blood Pressure 128/67 01/06/17 08:00 Pulse Oximetry 95 01/06/17 08:00 Height/Weight/BMI: Height 1.7 m Weight 71 kg Body Mass Index 24.7 - Constitutional Present: no acute distress, well nourished, well developed - Routine HEENT Exam Head: Present: normocephalic Eye: Present: PERRL. Absent: conjunctival icterus ENT: Present: mucous membranes moist - Routine Respiratory Exam Present: CTA bilaterally - Routine Cardiovascular Exam Present: RRR, S1, S2 - Routine Abdominal Exam Present: soft, normoactive bowel sounds - Routine Extremities Exam Present: edema (trace BLE) - Routine Musculoskeletal Exam Musculoskeletal: Present: moving extremities well - Routine Skin Exam Present: intact, dry, warm, ecchymosis (left forearm) - Routine Neurological Exam Present: alert - Routine Psychiatric Exam Present: normal affect, normal thought process, cooperative Results - Labs CBC & Chem 7: 01/02/17 06:58 01/02/17 06:58 Assessment and Plan (1) Delusional disorder Current visit: Yes Status: Acute (2) Type 1 diabetes Current visit: Yes Status: Acute Assessment and Plan: IMPRESSION Delusional disorder Diabetes mellitus type 1-insulin pump and continuous glucometer Mild normocytic anemia Thrombocytopenia Left ear deafness Hypertension GERD Hyperlipidemia Diverticulosis s/p right shoulder arthroscopy with RCR Tachycardia PLAN No recurrences of tachycardia or dizziness since 01/02/17. Continue Coreg. F/U with Dr. Cary after discharge. BGM typically are high but staff note some concern with management style - ie he bolused himself after a reading was only 114. Repeat labs on Monday. Patient's discharge has been delayed - concern about safe discharge plan. Hospital Course Summary Disclaimer: The visit summary below is not to be considered part of the above Progress Note. Hospital Course: 01/02/17 15:33 recommend he f/u with Dr. Cary on dismissal. 01/02/17 21:14 Pt continues to improve. Continue current care 01/03/17 17:05 Doing well. Consider D/C soon 01/04/17 Psych: Continue current care. Patient to have continued psychiatric care on outpatient basis after discharge. Will network with son to ensure no weapons in home and ask if he could stay with patient at least temporarily after discharge. 01/05/17 Psych: Continue current care. Continuing to discuss discharge planning , safety recommendations and f/u with family -- family states no one is available to supervise patient after discharge until f/u appointment. 01/06/17 No recurrences of tachycardia or dizziness since 01/02/17. Continue Coreg. F/U with Dr. Cary after discharge. BGM typically are high but staff note some concern with management style - ie he bolused himself after a reading was only 114. Repeat labs on Monday. Patient's discharge has been delayed - concern about safe discharge plan.
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
[2017-01-06] MEDS: LOVASTATIN 20 MG TABLET PO SCH (20:02)
[2017-01-06] MEDS: RisperiDONE 0.5 MG TABLET PO SCH (20:02)
[2017-01-07] MEDS: DOCUSATE SODIUM 100 MG CAPSULE PO SCH ×5 (01:12→22:47)
--- NOTE | 2017-01-07 11:58 | Neuropsych Progress Note ---
[facility] Subjective Date: 01/07/17 - Sujective/Severity of Illness Medications: Acetaminophen (Tylenol) 325 - 650 mg PO Q5H PRN PRN Reason: Discomfort Al Hydroxide/Mg Hydroxide (Maalox Plus) 30 ml PO Q4H PRN PRN Reason: Indigestion Last Admin: 01/02/17 21:10 Dose: 30 [facility] Last Admin: 01/06/17 17:53 Dose: 3.125 mg Docusate Sodium (Colace) 100 mg PO BID [facility] Last Admin: 01/07/17 01:12 Dose: Not Given Haloperidol (Haldol) 0.5 mg PO Q6H PRN PRN Reason: Extreme agitation Haloperidol Lactate (Haldol) 0.5 mg IM Q6H PRN PRN Reason: Extreme agitation Lorazepam (Ativan Inj) 0.5 mg IM Q6H PRN PRN Reason: Extreme agitation Lorazepam (Ativan) 0.5 mg PO Q6H PRN PRN Reason: Extreme agitation Lovastatin (Mevacor) 20 mg PO [facility] Last Admin: 01/06/17 20:02 Dose: 20 mg Magnesium Hydroxide (Mom) 30 ml PO DAILY PRN PRN Reason: Constipation Last Admin: 01/03/17 10:39 Dose: 30 ml Ondansetron HCl (Zofran Po) 4 mg PO Q6H PRN PRN Reason: Nausea &/or vomiting Last Admin: 01/02/17 03:21 Dose: 4 mg Risperidone (Risperdal) 0.5 mg PO [facility] Last Admin: 01/06/17 20:02 Dose: 0.5 mg Tramadol HCl (Ultram) 50 mg PO Q6H PRN PRN Reason: Pain Last Admin: 01/01/17 20:06 Dose: 50 mg Subjective: Pt seen and chart examined. Nursing reports pt has done well on the unit. On face to face the pt states he was dizzy. Vitals were taken and BP was low with pulse in the 140's. Pt states otherwise he is doing fine. He reports his mood is stable. Sleeping and eating well. Denies S/I. Tolerating meds Start Time: 11:00 Stop Time: 11:15 Mental Status Exam Vitals: Last Vital Signs Temp 98 F 01/06/17 19:30 Pulse 61 01/06/17 19:30 Resp 18 01/06/17 19:30 BP 130/58 01/06/17 19:30 Pulse Ox 96 01/06/17 19:30 Height: 1.7 m Weight: 71 kg - Mental Status Exam Muscle Strength/Tone: Normal Dressing: Casual Grooming: Good Attitude: Cooperative Motor Activity: Normal Eye Contact: Fair Speech: Normal Volume: Normal Rhythm: Appropriate Rhythm Orientation: Oriented X4 Mood: Euthymic Rate of Thoughts: Appropriate Rate Thought Organization: Organized Associations: Intact Abstract Reasoning: Intact, able to abstract Computation: Intact Thought Content: Delusions (decreased in intensity, patient willing to admit they may not be based in reality) Perception/Psychotic: Perception Normal Language: Naming Intact Fund of Knowledge: Appropriate Memory: Grossly Intact Suicidal Ideation: Denies Homicidal Ideation: Denies Insight: Limited Judgement: Limited Impulse Control: Fair - Laboratory Result Diagrams: 01/02/17 06:58 01/02/17 06:58 Laboratory Results - last 24 hr 01/06/17 01/06/17 01/07/17 17:24 20:09 00:39 Glucometer 213 253 298 01/07/17 06:28 Glucometer 181 Assessment and Plan (1) Type 1 diabetes Current visit: Yes Status: Acute (2) Major neurocognitive disorder Problem details: R/O frontotemporal Current visit: Yes Status: Acute (3) Psychosis Qualifiers: Psychosis type: unspecified psychosis type Qualified Code(s): F29 - Unspecified psychosis not due to a substance or known physiological condition Current visit: Yes Status: Acute Hospital Course Summary Disclaimer: The visit summary below is not to be considered part of the above Progress Note. Hospital Course: 01/02/17 15:33 recommend he f/u with Dr. Cary on dismissal. 01/02/17 21:14 Pt continues to improve. Continue current care 01/03/17 17:05 Doing well. Consider D/C soon 01/04/17 Psych: Continue current care. Patient to have continued psychiatric care on outpatient basis after discharge. Will network with son to ensure no weapons in home and ask if he could stay with patient at least temporarily after discharge. 01/05/17 Psych: Continue current care. Continuing to discuss discharge planning , safety recommendations and f/u with family -- family states no one is available to supervise patient after discharge until f/u appointment. 01/06/17 No recurrences of tachycardia or dizziness since 01/02/17. Continue Coreg. F/U with Dr. Cary after discharge. BGM typically are high but staff note some concern with management style - ie he bolused himself after a reading was only 114. Repeat labs on Monday. Patient's discharge has been delayed - concern about safe discharge plan. 01/06/17 Psych: Continue Risperdal 0.5mg PO q HS. Discharge delayed due to patient's resistance and family's unwillingness to participate in safe discharge plan. Exploring other options with them. Would like to discharge in time that he may attend neuropsych testing on Monday, but need to ensure psychiatric f/u and some level of supervision for safety and med management until that time. Concern for MNCD despite on SLU[facility]. Patient does have difficulty managing own BS as well. 01/07/17 11:57 Continue current care. Nursing to contact hospitalist due to dizziness
[2017-01-07] MEDS: CARVEDILOL 3.125 MG TABLET PO SCH (12:12)
--- NOTE | 2017-01-07 13:25 | Progress Note ---
Progress Note: Called re: elevated HR in the 140's, symptomatic with low BP. HR and BP improved upon pt return to bed. D/W RN- coreg was delayed due to pt. sleeping late. EKG was NSR. Reviewed BP. Only low was with elevated HR. Pt instructed to get ordered Coreg on board. Chart reviewed- will stop Coreg. Start metoprolol Tartrate tonight for better HR control.
[2017-01-07] MEDS: LOVASTATIN 20 MG TABLET PO SCH (20:15)
[2017-01-07] MEDS: RisperiDONE 0.5 MG TABLET PO SCH (20:15)
[2017-01-08] MEDS: DOCUSATE SODIUM 100 MG CAPSULE PO SCH ×2 (10:06→20:04)
--- NOTE | 2017-01-08 11:11 | Neuropsych Progress Note ---
[facility] Subjective Date: 01/08/17 - Sujective/Severity of Illness Medications: Acetaminophen (Tylenol) 325 - 650 mg PO Q5H PRN PRN Reason: Discomfort Al Hydroxide/Mg Hydroxide (Maalox Plus) 30 ml PO Q4H PRN PRN Reason: Indigestion Last Admin: 01/02/17 21:10 Dose: 30 ml Docusate Sodium (Colace) 100 mg PO BID [facility] Last Admin: 01/08/17 10:06 Dose: 100 mg Haloperidol (Haldol) 0.5 mg PO Q6H PRN PRN Reason: Extreme agitation Haloperidol Lactate (Haldol) 0.5 mg IM Q6H PRN PRN Reason: Extreme agitation Lorazepam (Ativan Inj) 0.5 mg IM Q6H PRN PRN Reason: Extreme agitation Lorazepam (Ativan) 0.5 mg PO Q6H PRN PRN Reason: Extreme agitation Lovastatin (Mevacor) 20 mg PO [facility] Last Admin: 01/07/17 20:15 Dose: 20 mg Magnesium Hydroxide (Mom) 30 ml PO DAILY PRN PRN Reason: Constipation Last Admin: 01/03/17 10:39 Dose: 30 ml [facility]oprolol [facility]) [facility] Last Admin: 01/08/17 10:07 Dose: 12.5 mg Ondansetron HCl (Zofran Po) 4 mg PO Q6H PRN PRN Reason: Nausea &/or vomiting Last Admin: 01/02/17 03:21 Dose: 4 mg Risperidone (Risperdal) 0.5 mg PO [facility] Last Admin: 01/07/17 20:15 Dose: 0.5 mg Tramadol HCl (Ultram) 50 mg PO Q6H PRN PRN Reason: Pain Last Admin: 01/01/17 20:06 Dose: 50 mg Subjective: Pt seen and chart examined. Nursing reports pt is doing well. Sleeping well and having a good appetite. No behaviors noted. On face to face the pt states he is doing well. less focused on paranoia. Denies S/I or H/I. Tolerating meds Start Time: 10:15 Stop Time: 10:30 Mental Status Exam Vitals: Last Vital Signs Temp 97.2 F 01/08/17 08:00 Pulse 54 L 01/08/17 09:31 Resp 18 01/08/17 08:00 BP 147/69 H 01/08/17 09:31 Pulse Ox 95 01/08/17 08:00 Height: 1.7 m Weight: 71 kg - Mental Status Exam Muscle Strength/Tone: Normal Dressing: Casual Grooming: Good Attitude: Cooperative Motor Activity: Normal Eye Contact: Fair Speech: Normal Volume: Normal Rhythm: Appropriate Rhythm Orientation: Oriented X4 Mood: Euthymic Rate of Thoughts: Appropriate Rate Thought Organization: Organized Associations: Intact Abstract Reasoning: Intact, able to abstract Computation: Intact Thought Content: Delusions (decreased in intensity, patient willing to admit they may not be based in reality) Perception/Psychotic: Perception Normal Language: Naming Intact Fund of Knowledge: Appropriate Memory: Grossly Intact Suicidal Ideation: Denies Homicidal Ideation: Denies Insight: Limited Judgement: Limited Impulse Control: Fair - Laboratory Result Diagrams: 01/02/17 06:58 01/02/17 06:58 Laboratory Results - last 24 hr 01/07/17 01/08/17 17:22 06:15 Glucometer 291 232 Assessment and Plan (1) Type 1 diabetes Current visit: Yes Status: Acute (2) Major neurocognitive disorder Problem details: R/O frontotemporal Current visit: Yes Status: Acute (3) Psychosis Qualifiers: Psychosis type: unspecified psychosis type Qualified Code(s): F29 - Unspecified psychosis not due to a substance or known physiological condition Current visit: Yes Status: Acute Hospital Course Summary Disclaimer: The visit summary below is not to be considered part of the above Progress Note. Hospital Course: 01/02/17 15:33 recommend he f/u with Dr. Cary on dismissal. 01/02/17 21:14 Pt continues to improve. Continue current care 01/03/17 17:05 Doing well. Consider D/C soon 01/04/17 Psych: Continue current care. Patient to have continued psychiatric care on outpatient basis after discharge. Will network with son to ensure no weapons in home and ask if he could stay with patient at least temporarily after discharge. 01/05/17 Psych: Continue current care. Continuing to discuss discharge planning , safety recommendations and f/u with family -- family states no one is available to supervise patient after discharge until f/u appointment. 01/06/17 No recurrences of tachycardia or dizziness since 01/02/17. Continue Coreg. F/U with Dr. Cary after discharge. BGM typically are high but staff note some concern with management style - ie he bolused himself after a reading was only 114. Repeat labs on Monday. Patient's discharge has been delayed - concern about safe discharge plan. 01/06/17 Psych: Continue Risperdal 0.5mg PO q HS. Discharge delayed due to patient's resistance and family's unwillingness to participate in safe discharge plan. Exploring other options with them. Would like to discharge in time that he may attend neuropsych testing on Monday, but need to ensure psychiatric f/u and some level of supervision for safety and med management until that time. Concern for MNCD despite on SLUMS. Patient does have difficulty managing own BS as well. 01/07/17 11:57 Continue current care. Nursing to contact hospitalist due to dizziness 01/08/17 11:10 Doing well. Continue current care
[2017-01-08] MEDS: RisperiDONE 0.5 MG TABLET PO SCH (20:03)
[2017-01-08] MEDS: LOVASTATIN 20 MG TABLET PO SCH (20:04)
[2017-01-09 07:49] VITALS: O2SAT 97
[2017-01-09] MEDS: DOCUSATE SODIUM 100 MG CAPSULE PO SCH (08:00)
--- NOTE | 2017-01-09 15:38 | Extended Care Facility Orders ---
Admission Orders Admit to:: Other (Home Health) Allergies/Adverse Reactions: Allergies No Known Allergies Allergy (Verified 12/22/16 22:28) Admitting Diagnosis: Delusional Disorder Admitting Physician: Wilbert Glover MD Attending Physician: Wilbert Glover MD Code Status: Full Code Anticiapted Length of Stay: greater than 30 days Rehab Potential: good Rehab Prognosis: good Diet: 12/23/16 Breakfast Consistent Carbohydrate Diet [DIET] Calorie Level: 1999 May have flu vaccine: Yes Evaluations/Treatment: PT, OT, Psychiatric Custodial Certification: I certify that SNF services are required to be given on an Inpatient basis because of the patients need for [facility] care on a continuing basis for the condition(s) for which he/she received inpatient hospital services prior to his/her transfer to the SNF. SNF inpatient care is necessary for the following reasons Indication for Custodial: Med Admininistration, Teach Medication Management - Additional Information Referrals: Leighton Kasper MD [Other] (Dr. Lety Kasper on 01/10/17 at 2:00 pm for follow-up. [phone]. [address] [place] [id number] ) Andriy Raphael MD [Other] ( ) Mary Lou Gould [Other] () Mary Carmen Lilly [Other] (Mary Carmen Lilly on 01/16/17 at 1:00 for Mental Health follow -up. If you are needing scripts filled, you can go to the [facility] walk-in [facility].) [facility] (Dr. James Webb office will notify patient with date and time of his follow-up appt. Team ext. [phone] [facility] [address] [place] [address])
[2017-01-09 16:37] VITALS: BP 135/65; PULSE 61; RESP 18; TEMP 98.4
== END 2017-01-09 17:00 | disposition home or self-care (01) | DRG 884 ==
LOC: GEN 21:29
PROVIDERS: ADMIT Psychiatry & Neurology Psychiatry; ATTEND Psychiatry & Neurology Psychiatry